=== PATIENT | female | born 1985 | race Caucasian/White ===

== ENCOUNTER 2016-12-08 10:59 | Emergency (ER) | payer MEDICAID ==
[2016-12-08 11:09] VITALS: BP 124/70; PULSE 74; TEMP 97.3; O2SAT 97
[2016-12-08 11:56] LABS: RBC URINE 5 /hpf (0-3); URINE BACTERIA RARE (<OCC); URINE BILIRUBIN NEGATIVE (NEGATIVE); URINE BLOOD NEGATIVE (NEGATIVE); URINE COLOR Yellow (YELLOW); URINE GLUCOSE (UA) NORMAL (Normal); URINE KETONE NEGATIVE (NEGATIVE); URINE LEUKOCYTE ESTERASE NEG Leu/uL (Negative); URINE PROTEIN NEGATIVE (NEGATIVE); URINE UROBILINOGEN NORMAL mg/dL (0.2-1.0); WBC URINE 4 /hpf (0-5)
[2016-12-08] MEDS ORDERED: cefTRIAXone (Rocephin) 250 mg Inj IM STA (12:11)
--- NOTE | 2016-12-08 13:02 | C.PDOC ---
History Of Present Illness 31 year old patient, with a past medical history of kidney stones, presents to the emergency department complaining of vaginal pain and "swelling" for the past month. Patient states it causes intermittent pain to the pelvic region. She also states she has a lump in her rectum. She has associated foul smelling vaginal discharge. Patient denies vaginal bleeding, fever, nausea, vomiting, diarrhea, dysuria, or back pain. Time Seen by Provider: 12/08/16 11:17 Chief Complaint (Nursing): Abdominal Pain History Per: Patient History/Exam Limitations: no limitations Onset/Duration Of Symptoms: Other (1 month) Current Symptoms Are (Timing): Still Present Context: Other Severity: Mild Pain Scale Rating Of: 3 Location Of Pain/Discomfort: Other Radiation Of Pain To:: None Quality Of Discomfort: "Pain" Exacerbating Factors: None Alleviating Factors: None Last Bowel Movement: Today Recent travel outside of the [place]: No Abnormal Vaginal Bleeding: No Past Medical History Reviewed: Historical Data, Nursing Documentation, Vital Signs Vital Signs: Last Vital Signs Temp 97.3 F L 12/08/16 11:06 Pulse 74 12/08/16 11:06 Resp 20 12/08/16 14:01 BP 124/70 12/08/16 11:06 Pulse Ox 97 12/08/16 13:33 - Medical History PMH: Anemia, Anxiety, Depression, Kidney Stones - [facility] Procedures TETANUS TOXOID ADMINIST (02/09/15) Family History: States: Unknown Family Hx - Social History Hx Tobacco Use: No Hx Alcohol Use: No Hx Substance Use: Yes - Immunization History Hx Tetanus Toxoid Vaccination: No Hx Influenza Vaccination: Yes Hx Pneumococcal Vaccination: No Review Of Systems Except As Marked, All Systems Reviewed And Found Negative. Constitutional: Negative for: Fever Gastrointestinal: Negative for: Nausea, Vomiting, Diarrhea Genitourinary: Positive for: Vaginal Discharge, Pelvic Pain, Other (vaginal pain and "Swelling"). Negative for: Dysuria, Vaginal Bleeding Musculoskeletal: Negative for: Back Pain Physical Exam - Physical Exam Appears: Non-toxic, No Acute Distress Skin: Warm, Dry Head: Atraumatic, Normacephalic Neck: Normal ROM, Supple Chest: Symmetrical Cardiovascular: Rhythm Regular Respiratory: Normal Breath Sounds, No Rales, No Rhonchi, No Wheezing Gastrointestinal/Abdominal: Soft, No Tenderness, No Guarding, No Rebound Back: Normal Inspection, No CVA Tenderness Pelvic: Vaginal Discharge (frothy and foul smelling), No Cervical Motion Tenderness, No Adnexal Tenderness, Other (solid die cutter: Michelle Otto, emergency department Tech) Extremity: Normal ROM Neurological/Psych: Oriented x3, Normal Speech, Normal Cognition Gait: Steady ED Course And Treatment O2 Sat by Pulse Oximetry: 97 (RA) Pulse Ox Interpretation: Normal Medical Decision Making Medical Decision Making: GC/Chlamydia culture ordered and obtained. Rocephin and Zithromax given. Disposition - Disposition Referrals: [facility] [Outside] Merritt Mohamud MD [Staff Provider] - Daryn Cruz [Staff Provider] - Disposition: HOME/ ROUTINE Disposition Time: 13:00 Condition: GOOD Additional Instructions: Follow up with the OBGYN within 1-2 days without fail. Return if worsened Prescriptions: metroNIDAZOLE [Flagyl] 500 mg PO BID #14 tab Instructions: Bacterial Vaginosis (ED) - Clinical Impression Clinical Impression: Bacterial vaginosis - PA / COMMERCIAL LOAN ASSISTANT / Resident Statement MD/DO has reviewed & agrees with the documentation as recorded. - Scribe Statement The provider has reviewed the documentation as recorded by the Scribe Sammie Roth All medical record entries made by the Scribe were at my direction and personally dictated by me. I have reviewed the chart and agree that the record accurately reflects my personal performance of the history, physical exam, medical decision making, and the department course for this patient. I have also personally directed, reviewed, and agree with the discharge instructions and disposition.
[2016-12-08 14:01] VITALS: RESP 20
== END 2016-12-08 14:00 | disposition home or self-care (01) ==
LOC: C.ER 10:59
DX: N76.0 Acute vaginitis (principal)
CPT/HCPCS: 81001; 84703; 87086; 87491; 87591; 96372; 99285; J0696

== ENCOUNTER 2018-08-14 13:04 | Emergency (ER) | payer MEDICAID ==
[2018-08-14 13:13] VITALS: RESP 18; TEMP 97.8; O2SAT 97
--- NOTE | 2018-08-14 13:48 | C.PDOC ---
Time Seen by Provider: 08/14/18 13:46 Chief Complaint (Nursing): Back Pain Past Medical History Vital Signs: Last Vital Signs Temp 97.8 F 08/14/18 13:09 Pulse 64 08/14/18 13:09 Resp 18 08/14/18 13:09 BP 101/58 L 08/14/18 13:09 Pulse Ox 97 08/14/18 13:09 - Medical History PMH: Anemia, Anxiety, Depression, Kidney Stones - [facility] Procedures TETANUS TOXOID ADMINIST (02/09/15) Family History: States: Unknown Family Hx - Social History Hx Tobacco Use: No Hx Alcohol Use: No Hx Substance Use: Yes - Immunization History Hx Tetanus Toxoid Vaccination: No Hx Influenza Vaccination: Yes Hx Pneumococcal Vaccination: No ED Course And Treatment O2 Sat by Pulse Oximetry: 97 Disposition - Disposition
--- NOTE | 2018-08-14 14:08 | C.PDOC ---
History Of Present Illness Patient is a 33 year old female with PMHx of anxiety who presents today for 1 month of chest and "lung" discomfort. Patient says she feels like her "lungs are on fire." Patient admits to chest wall tenderness with palpation which she rates 8/10. Patient has taken Dayquil and Nyquil with minimal relief. Patient says the pain is worse at night when she is laying down. Patient admits to a dry cough and some nausea. Patient denies any fevers/chills, shortness of breath, nasal congestion, phlegm, abdominal pain, vomiting, diarrhea, or constipation. LMP: 07/13/18 <Tamra Marquez - Last Filed: 08/14/18 15:47> History Per: Patient History/Exam Limitations: no limitations Onset/Duration Of Symptoms: Days, Waxing/Waning Current Symptoms Are (Timing): Still Present Severity: Moderate Pain Scale Rating Of: 8 Quality: Burning Associated Symptoms: Nausea Exacerbating Factors: Other (palpation) Alleviating Factors: None <Tamra Marquez - Last Filed: 08/14/18 15:47> <Milan Oliveira - Last Filed: 08/14/18 18:59> Time Seen by Provider: 08/14/18 13:46 Chief Complaint (Nursing): Back Pain Past Medical History Vital Signs: Last Vital Signs Temp 97.8 F 08/14/18 13:09 Pulse 64 08/14/18 13:09 Resp 18 08/14/18 13:09 BP 101/58 L 08/14/18 13:09 Pulse Ox 97 08/14/18 13:09 - Medical History PMH: Anemia, Anxiety, Depression Surgical History: Hernia Repair (as child) - [facility] Procedures TETANUS TOXOID ADMINIST (02/09/15) Family History: States: Diabetes, Hypertension Other Family History: Mom: DMII, HTN, Asthma, Arthritis. Dad: Diabetes Insipidus - Social History Hx Tobacco Use: Yes (off and on) Hx Alcohol Use: No Hx Substance Use: Yes - Immunization History Hx Tetanus Toxoid Vaccination: No Hx Influenza Vaccination: Yes Hx Pneumococcal Vaccination: No <Tamra Marquez - Last Filed: 08/14/18 15:47> Vital Signs: Last Vital Signs Temp 97.8 F 08/14/18 13:09 Pulse 64 08/14/18 13:09 Resp 18 08/14/18 13:09 BP 101/58 L 08/14/18 13:09 Pulse Ox 97 08/14/18 14:56 - [facility] Procedures TETANUS TOXOID ADMINIST (02/09/15) <Milan Oliveira - Last Filed: 08/14/18 18:59> Review Of Systems Constitutional: Negative for: Fever, Chills Cardiovascular: Positive for: Chest Pain (chest wall pain). Negative for: Palpitations Respiratory: Positive for: Cough. Negative for: Shortness of Breath Gastrointestinal: Positive for: Nausea. Negative for: Vomiting, Diarrhea, Constipation Genitourinary: Negative for: Dysuria Musculoskeletal: Positive for: Other (chest wall pain) <Tamra Marquez - Last Filed: 08/14/18 15:47> Physical Exam - Physical Exam Appears: Non-toxic, No Acute Distress Skin: Normal Color, Warm Throat: Normal, No Erythema, No Exudate Neck: Normal Chest: Symmetrical, Tenderness (central chest wall tenderness to palpation) Respiratory: Normal Breath Sounds, No Accessory Muscle Use, No Rales, No Rhonchi, No Stridor, No Wheezing Gastrointestinal/Abdominal: Normal Exam, Bowel Sounds, Soft, No Tenderness Neurological/Psych: Oriented x3 <Tamra Marquez - Last Filed: 08/14/18 15:47> ED Course And Treatment ECG: Interpreted By Me, Viewed By Me ECG Rhythm: Sinus Rhythm, Nonspecific Changes ECG Interpretation: No Acute Changes Interpretation Of ECG: NSR with non specific T wave inversions Rate From EC O2 Sat by Pulse Oximetry: 97 Pulse Ox Interpretation: Normal - Radiology CXR: Interpreted by Me, Viewed By Me CXR Interpretation: Yes: No Acute Disease <Tamra Marquez - Last Filed: 08/14/18 15:47> Medical Decision Making Medical Decision Making: patient resting comfortably, chest wall with reproducible chest wall pain lungs are clear cardio - heart rrr with s1s2 patient heart score is 0 vitals are normal ekg demonstrate nsr at rate of 65 bpm with nrm intervals, nrm axis, twave invseion in v2, v3, III, no st elevation. patient instructed to follow up with her pmd within 2 days. <Milan Oliveira - Last Filed: 08/14/18 18:59> Disposition <Tamra Marquez - Last Filed: 08/14/18 15:47> Counseled Patient/Family Regarding: Studies Performed, Diagnosis, Need For Followup, Rx Given - Disposition Disposition Time: 15:04 <Milan Oliveira - Last Filed: 08/14/18 18:59> - Disposition Referrals: [facility] [Outside] Disposition: HOME/ ROUTINE Condition: STABLE Additional Instructions: follow up with your doctor or medical clinic within 2 days call to make an appointment take medication as needed for pain return to ER if symptoms worsens or progress Prescriptions: Naproxen [Naprosyn] 500 mg PO BID PRN #16 tab PRN Reason: Pain, Moderate (4-7) Instructions: Costochondritis (DC) Forms: [facility] (Ukrainian), General Discharge Instructions - Clinical Impression Clinical Impression: Chest wall pain - PA / STEEL SASH ERECTOR / Resident Statement MD/DO has reviewed & agrees with the documentation as recorded. /DO has examined the patient and agrees with the treatment plan. <Tamra Marquez - Last Filed: 08/14/18 15:47>
[2018-08-14] MEDS ORDERED: Sodium Chloride 0.9% Inh Soln (3mL) UD INH ONE (14:16)
[2018-08-14] MEDS ORDERED: Aluminum Hydroxide/Magnesium Hydroxide Susp (30 mL) PO STA (14:16)
--- NOTE | 2018-08-14 14:34 | RAD ---
HISTORY: chest pain COMPARISON: No prior. TECHNIQUE: Chest PA and lateral FINDINGS: Examination limited by habitus. LUNGS: No focal consolidation. Please note that chest x-ray has limited sensitivity for the detection of pulmonary masses. PLEURA: No significant pleural effusion identified. No definite pneumothorax . CARDIOVASCULAR: Heart size appears within normal limits. No atherosclerotic calcification present. OSSEOUS STRUCTURES: No acute osseous abnormality identified. VISUALIZED UPPER ABDOMEN: Unremarkable. OTHER FINDINGS: None. IMPRESSION: No focal consolidation, significant pleural effusion, or definite pneumothorax identified.
[2018-08-14] MEDS ORDERED: Aluminum Hydroxide/Magnesium Hydroxide Susp (30 mL) ONE (14:36)
[2018-08-14 15:51] VITALS: BP 110/62; PULSE 89
--- NOTE | 2018-08-16 17:34 | CARD ---
APPROVED REPORT Date of service: 08/14/2018 EKG Measurement Heart [id number] <Conclusion> Normal sinus rhythm Nonspecific T wave abnormality Abnormal ECG
== END 2018-08-14 15:50 | disposition home or self-care (01) ==
LOC: C.ER 13:04
DX: R07.89 Other chest pain (principal); F41.9 Anxiety disorder, unspecified; Z82.49 Family history of ischemic heart disease and other diseases of the circulatory system